=== PATIENT | female | born 1970 | race Caucasian/White ===

== ENCOUNTER 2022-10-09 07:30 | Emergency (ER) | payer SELFPAY ==
[~2022-10-09] VITALS: Ht 170.2 cm; Wt 135.6 kg
[2022-10-09 07:33] VITALS: BP_SYST 152
--- NOTE | 2022-10-09 07:40 | NUR ---
TRIAGE COMPLETE. URINE CUP PROVIDED. URINE OBTAINED AND SENT TO LAB. PT ESCORTED TO BED_3. PREP FOR ERMD EVAL. COMFORT MEASURES AND SUPPORTIVE CARE INITIATED. PREP FOR ERMD EVAL.
--- NOTE | 2022-10-09 07:45 | NUR ---
RECEIVED PT FROM [facility]. PT HAS C/O RLQ radiating to upper back onset 0430. PT IS AAOX4. NORMAL S1S2 NOTED. ON R/A. ABDOMEN ROUND, OBESE, TENDER. PT HAS C/O NAUSEA. DISTAL PULSES NORMAL. SKIN WARM. SIDERAILS UP X2.
[2022-10-09 07:57] LABS: BILIRUBIN,URINE NEGATIVE (NEGATIVE); CLARITY/URINE CLEAR (CLEAR); COLOR,URINE YELLOW (YELLOW); GLUCOSE,URINE NEGATIVE (NEGATIVE); KETONES,URINE NEGATIVE (NEGATIVE); LEUKOCYTE ESTERASE ,URINE 1+ (NEGATIVE); NITRITE, URINE NEGATIVE (NEGATIVE); PROTEIN URINE TRACE (NEGATIVE)
[2022-10-09 08:05] LABS: BLOOD, URINE TRACE (NEGATIVE)
[2022-10-09] MEDS ORDERED: ONDANSETRON 4 MG ODT TAB PO ONE (08:15)
[2022-10-09 08:17] LABS: BASOPHILS # (AUTO) 0.1 K/uL (0.0-0.2); BASOPHILS % (AUTO) 0.8 % (0.0-2.0); EOSINOPHILS # (AUTO) 0.2 K/uL (0.0-0.4); EOSINOPHILS % (AUTO) 2.7 % (0.0-4.0); HEMATOCRIT 40.2 % (36-48); HEMOGLOBIN 13.4 g/dL (12.0-16.0); LYMPHOCYTES # (AUTO) 1.4 K/uL (1.0-5.5); LYMPHOCYTES % (AUTO) 20.6 % (20.5-51.5); MEAN CORPUSCULAR HEMOGLOBIN 28 pg (27-31); MEAN CORPUSCULAR HGB CONC 33 % (32-36); MEAN CORPUSCULAR VOLUME 83 fL (79.0-98.0); MONOCYTES # (AUTO) 0.5 K/uL (0.0-1.0); MONOCYTES % (AUTO) 7.1 % (1.7-9.3); NEUTROPHILS # (AUTO) 4.6 K/uL (1.8-7.7); NEUTROPHILS % (AUTO) 68.8 % (40.0-70.0); PLATELET COUNT (AUTO) 269 K/uL (130-430); RED BLOOD CELL COUNT(AUTO) 4.86 MIL/uL (4.2-6.2); RED CELL DISTRIBUTION WIDTH 13.9 % (9.0-15.0); WHITE BLOOD COUNT (AUTO) 6.7 K/uL (4.8-10.8)
--- NOTE | 2022-10-09 08:50 | NUR ---
# 30 gauge angiocath placed to RAC. Use of asceptic technique. Opsite placed over site. Blood return noted. Flushed with 10 cc of normal saline. No evidence of infiltration noted. Patient tolerated well. 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
[2022-10-09] MEDS ORDERED: KETOROLAC TROMETHAMINE 30 MG VIAL IVP ONE (09:00)
[2022-10-09 09:02] LABS: ALBUMIN 3.6 g/dL (3.4-4.8); CALCIUM 9.3 mg/dL (8.4-11.0); CREATININE 0.79 mg/dL (0.55-1.30); TOTAL BILIRUBIN 0.3 mg/dL (0.0-1.0)
[2022-10-09 09:17] LABS: BACTERIA,URINE RARE /HPF (None Seen)
--- NOTE | 2022-10-09 09:17 | NUR ---
ZOFRAN 4MG S/L GIVEN, TORADOL IVP GIVEN FOR 8/10 RIGHT UPPER QUAD PAIN.
[2022-10-09] MEDS ORDERED: IBUP-1969 PO (12:00)
[2022-10-09] MEDS ORDERED: ONDA-8 TL (12:00)
--- NOTE | 2022-10-09 12:00 | NUR ---
DR. MENDOZA AT BEDSIDE TO DISCUSS POC.
[2022-10-09 12:20] VITALS: BP_SYST 148
--- NOTE | 2022-10-09 13:55 | NUR ---
Patient given written and verbal discharge instructions and verbalizes understanding. ER MD discussed with patient the results and treatment provided. Patient in stable condition. ID arm band removed. IV catheter removed intact and dressing applied, no active bleeding. Rx of IBUPROPHEN, ZOFRAN given. Patient educated on pain management and to follow up with PMD. Pain Scale 0/10. Opportunity for questions provided and answered. Medication side effect fact sheet provided.
== END 2022-10-09 13:55 | disposition home or self-care (01) ==
LOC: SED 07:30
DX: N39.0 Urinary tract infection, site not specified (principal); K80.50 Calculus of bile duct without cholangitis or cholecystitis without obstruction; K80.20 Calculus of gallbladder without cholecystitis without obstruction; R10.11 Right upper quadrant pain; R11.0 Nausea; Z79.899 Other long term (current) drug therapy
CPT/HCPCS: 99285; 96374; 76705; 80053; 81000; 83690; 85025; 87086; 36415; Q0162; J1885